=== PATIENT | female | born 1945 | race Asian ===

== ENCOUNTER 2016-12-19 13:47 | Outpatient (CLI) | payer OTHER | END 2016-12-19 18:08 | disposition home or self-care (01) | LOC: SRD 13:47 → EEVIPCON 13:47 → SRD 18:08 | PROVIDERS: ATTEND Psychiatry & Neurology Neurology | DX: D49.6 Neoplasm of unspecified behavior of brain (principal); G31.9 Degenerative disease of nervous system, unspecified | CPT/HCPCS: 70551 ==